=== PATIENT | male | born 1975 | race Caucasian/White ===

== ENCOUNTER 2017-10-24 22:31 | Emergency (ER) | payer OTHER ==
[~2017-10-24] VITALS: Ht 193 cm; Wt 94.4 kg
[2017-10-24] MEDS ORDERED: PERM60CR4 TOP (23:00)
[2017-10-24 23:23] VITALS: BP 120/75
== END 2017-10-24 23:25 | disposition home or self-care (01) ==
LOC: ER 22:32
DX: B86 Scabies (principal); Z79.899 Other long term (current) drug therapy
CPT/HCPCS: 99282